=== PATIENT | male | born 1965 | race Caucasian/White ===

== ENCOUNTER 2019-09-20 16:25 | Emergency (ER) | payer OTHER ==
[~2019-09-20] VITALS: Ht 198.1 cm; Wt 108.0 kg
[2019-09-20] MEDS ORDERED: FLEXERIL PO (18:23)
[2019-09-20] MEDS ORDERED: NAPROSYN500 MG PO (18:23)
[2019-09-20 18:34] VITALS: BP 128/88
== END 2019-09-20 18:35 | disposition home or self-care (01) ==
LOC: M.ERS 16:25
DX: S39.012A Strain of muscle, fascia and tendon of lower back, initial encounter (principal); X50.9XXA Other and unspecified overexertion or strenuous movements or postures, initial encounter; Y93.89 Activity, other specified; Y92.89 Other specified places as the place of occurrence of the external cause; Y99.0 Civilian activity done for income or pay